=== PATIENT | male | born 1950 | race Caucasian/White ===

== ENCOUNTER 2018-06-05 17:45 | Inpatient (IN) | payer MEDICARE, OTHER ==
--- NOTE | 2018-06-05 18:18 | ER Document Report ---
ED General - General Chief Complaint: Shortness Of Breath Stated Complaint: SHORTNESS OF BREATH Time Seen by Provider: 06/05/18 18:08 Mode of Arrival: Medic Information source: Patient, DrLeonila Office, [facility] Records Notes: 68-year-old male with GERD presents with complaint of shortness of breath that started 1 month prior to arrival. Patient was seen by his primary care physician Dr. Simpson this morning and advised to come to the emergency department. Patient arrived via EMS. He was found to be in atrial fibrillation and was given 20 mg of Cardizem prior to arrival. Patient denies chest pain, palpitations, nausea, vomiting, diaphoresis. - HPI Onset: Other Quality of pain: No pain Severity: None Associated symptoms: Shortness of breath. denies: Chest pain, Nonproductive cough, Fever, Nausea, Vomiting, Weakness Exacerbated by: Denies Relieved by: Denies Similar symptoms previously: No Recently seen / treated by doctor: Yes - June 05, 2018 Dr. Simpson - Related Data Allergies/Adverse Reactions: No Known Allergies Allergy (Verified 06/05/18 21:06) Past Medical History - General Information source: Patient, Emergency Med Personnel - Social History Smoking Status: Never Smoker Frequency of alcohol use: None Drug Abuse: None Lives with: Spouse/Significant other Family History: Reviewed & Not Pertinent Patient has suicidal ideation: No Patient has homicidal ideation: No GI Medical History: Reports: Hx Gastroesophageal Reflux Disease Review of Systems - Review of Systems Notes: REVIEW OF SYSTEMS: CONSTITUTIONAL : Denies fever, chills, or sweats. Denies recent illness. Denies weight loss, recent hospitalizations. EENT: Denies visual changes, eye pain. Denies sore throat, oral lesions, difficulty swallowing. CARDIOVASCULAR: Denies chest pain. Denies palpitations. Denies lower extremity edema. RESPIRATORY: Denies cough. Denies wheezing. GASTROINTESTINAL: Denies abdominal pain or distention. Denies nausea, vomiting , or diarrhea. Denies blood in vomitus, stools, or per rectum. Denies black, tarry stools. Denies constipation. GENITOURINARY: Denies difficulty urinating, painful urination, frequency, blood in urine, testicular pain or penile discharge. MUSCULOSKELETAL: Denies back or neck pain or stiffness. Denies joint pain or swelling. SKIN: Denies rash, lesions or sores. HEMATOLOGIC : Denies easy bruising or bleeding. LYMPHATIC: Denies swollen glands. NEUROLOGICAL: Denies confusion or altered mental status. Denies loss of consciousness. Denies dizziness or lightheadedness. Denies headache. Denies weakness or paralysis. Denies problems difficulty with ambulation, slurred speech. Denies sensory loss, numbness, or tingling. Denies seizures. PSYCHIATRIC: Denies anxiety or stress. Denies depression, suicidal ideation, or Physical Exam - Vital signs Vitals: Temp Pulse BP Pulse Ox 98.2 F 67 135/74 H 100 06/05/18 17:56 06/05/18 17:56 06/05/18 17:56 06/05/18 17:56 Interpretation: Tachycardic. No: Hypoxic - Notes Notes: PHYSICAL EXAMINATION: GENERAL: Well-appearing, well-nourished and in no acute distress. HEAD: Atraumatic, normocephalic. EYES: Pupils equal round and reactive to light, extraocular movements intact, sclera anicteric, conjunctiva are normal. ENT: Nares patent, oropharynx clear without exudates. Moist mucous membranes. NECK: Normal range of motion, supple without lymphadenopathy LUNGS: Breath sounds clear to auscultation bilaterally and equal. No wheezes rales or rhonchi. HEART: Tachycardic, irregular rhythm. ABDOMEN: Soft, nontender, nondistended abdomen. No guarding, no rebound. No masses appreciated. Musculoskeletal: Normal range of motion, no pitting or edema. No cyanosis. NEUROLOGICAL: Cranial nerves grossly intact. Normal speech, normal gait. Normal sensory, motor exams PSYCH: Normal mood, normal affect. SKIN: Warm, Dry, normal turgor, no rashes or lesions noted. Course - Re-evaluation Re-evalutation: 06/05/18 22:05 Laboratory 06/05/18 06/05/18 06/05/18 18:43 18:43 20:28 WBC 6.2 RBC 4.81 Hgb 14.8 Hct 42.6 MCV 89 MCH 30.7 MCHC 34.7 RDW 12.9 Plt Count 208 Seg Neutrophils % 77.9 Lymphocytes % 12.7 L Monocytes % 7.4 Eosinophils % 1.5 Basophils % 0.5 Absolute Neutrophils 4.8 Absolute Lymphocytes 0.8 Absolute Monocytes 0.5 Absolute Eosinophils 0.1 Absolute Basophils 0.0 PT INR Sodium Potassium Chloride Carbon Dioxide Anion Gap BUN Creatinine Est GFR ( Amer) Est GFR (Non-Af Amer) Glucose Calcium Magnesium Total Bilirubin Direct Bilirubin Neonat Total Bilirubin Neonat Direct Bilirubin Neonat Indirect Bili AST ALT Alkaline Phosphatase Troponin I NT-Pro-B Natriuret Pep Total Protein Albumin Urine Color YELLOW Urine Appearance CLEAR Urine pH 5.0 Ur Specific [place] 1.026 Urine Protein NEGATIVE Urine Glucose (UA) NEGATIVE Urine Ketones TRACE H Urine Blood NEGATIVE Urine Nitrite NEGATIVE Urine Bilirubin NEGATIVE Urine Urobilinogen NEGATIVE Ur Leukocyte Esterase NEGATIVE Urine WBC (Auto) 3 Urine RBC (Auto) 1 U Hyaline Cast (Auto) 1 Squamous Epi Cells Auto <1 Urine Mucus (Auto) MOD Urine Ascorbic Acid NEGATIVE Urine Opiates Screen NEGATIVE Urine Methadone Screen NEGATIVE Ur Barbiturates Screen NEGATIVE Ur Phencyclidine Scrn NEGATIVE Ur Amphetamines Screen NEGATIVE U Benzodiazepines Scrn NEGATIVE Urine Cocaine Screen NEGATIVE U Marijuana (THC) Screen NEGATIVE 06/05/18 06/05/18 06/05/18 20:28 20:28 20:28 WBC RBC Hgb Hct MCV MCH MCHC RDW Plt Count Seg Neutrophils % Lymphocytes % Monocytes % Eosinophils % Basophils % Absolute Neutrophils Absolute Lymphocytes Absolute Monocytes Absolute Eosinophils Absolute Basophils PT Cancelled 13.3 INR Cancelled 0.97 Sodium 140.9 Potassium 4.5 Chloride 106 Carbon Dioxide 28 Anion Gap 7 BUN 21 H Creatinine 0.71 Est GFR ( Amer) > 60 Est GFR (Non-Af Amer) > 60 Glucose 107 Calcium 9.5 Magnesium 2.2 Total Bilirubin 1.1 Direct Bilirubin 0.4 Neonat Total Bilirubin Not Reportable Neonat Direct Bilirubin Not Reportable Neonat Indirect Bili Not Reportable AST 19 ALT 30 Alkaline Phosphatase 57 Troponin I NT-Pro-B Natriuret Pep Total Protein 6.7 Albumin 4.1 Urine Color Urine Appearance Urine pH Ur Specific [place] Urine Protein Urine Glucose (UA) Urine Ketones Urine Blood Urine Nitrite Urine Bilirubin Urine Urobilinogen Ur Leukocyte Esterase Urine WBC (Auto) Urine RBC (Auto) U Hyaline Cast (Auto) Squamous Epi Cells Auto Urine Mucus (Auto) Urine Ascorbic Acid Urine Opiates Screen Urine Methadone Screen Ur Barbiturates Screen Ur Phencyclidine Scrn Ur Amphetamines Screen U Benzodiazepines Scrn Urine Cocaine Screen U Marijuana (THC) Screen 06/05/18 20:28 WBC RBC Hgb Hct MCV MCH MCHC RDW Plt Count Seg Neutrophils % Lymphocytes % Monocytes % Eosinophils % Basophils % Absolute Neutrophils Absolute Lymphocytes Absolute Monocytes Absolute Eosinophils Absolute Basophils PT INR Sodium Potassium Chloride Carbon Dioxide Anion Gap BUN Creatinine Est GFR ( Amer) Est GFR (Non-Af Amer) Glucose Calcium Magnesium Total Bilirubin Direct Bilirubin Neonat Total Bilirubin Neonat Direct Bilirubin Neonat Indirect Bili AST ALT Alkaline Phosphatase Troponin I < 0.012 NT-Pro-B Natriuret Pep 688 Total Protein Albumin Urine Color Urine Appearance Urine pH Ur Specific [place] Urine Protein Urine Glucose (UA) Urine Ketones Urine Blood Urine Nitrite Urine Bilirubin Urine Urobilinogen Ur Leukocyte Esterase Urine WBC (Auto) Urine RBC (Auto) U Hyaline Cast (Auto) Squamous Epi Cells Auto Urine Mucus (Auto) Urine Ascorbic Acid Urine Opiates Screen Urine Methadone Screen Ur Barbiturates Screen Ur Phencyclidine Scrn Ur Amphetamines Screen U Benzodiazepines Scrn Urine Cocaine Screen U Marijuana (THC) Screen Chest X-Ray 06/05/18 18:18 IMPRESSION: NO ACUTE RADIOGRAPHIC FINDING IN THE CHEST. 06/05/18 23:41 68-year-old male presents with complaint of shortness of breath. Patient states shortness of breath has been ongoing for 1 month. He is seen by his primary care physician today and sent to the emergency department via EMS when found to be in atrial fibrillation with RVR. Patient did receive 25 mg of Cardizem prior to arrival. Upon arrival patient is still tachycardic with a heart rate in the 140-150s. Cardizem drip initiated. Heart rate presently 103 with a blood pressure 122/84. Patient denies prior similar symptoms. He does not appear toxic or dehydrated. He is in no acute distress. Chest x-ray shows no evidence of congestive heart failure. CBC is without leukocytosis or anemia. CMP shows no electrolyte abnormalities. Cardiac enzymes within normal limits. Patient will be admitted to the hospitalist for new onset atrial fibrillation. Patient accepted by Dr. Edwards. - Vital Signs Vital signs: Temp Pulse Resp BP Pulse Ox 98.3 F 67 18 120/78 96 06/05/18 23:28 06/05/18 17:56 06/05/18 23:01 06/05/18 23:01 06/05/18 23:01 - Laboratory Result Diagrams: 06/05/18 20:28 06/05/18 20:28 Laboratory results interpreted by me: 06/05/18 06/05/18 06/05/18 18:43 20:28 20:28 Lymphocytes % 12.7 L BUN 21 H Urine Ketones TRACE H - Diagnostic Test Radiology reviewed: Image reviewed, Reports reviewed Discharge - Discharge Clinical Impression: New onset atrial fibrillation, Atrial fibrillation with RVR, Shortness of breath Condition: Good Disposition: ADMITTED INPATIENT Admitting Provider: Hospitalist Unit Admitted: Telemetry
--- NOTE | 2018-06-05 18:43 | RADIOLOGY REPORT (SQ) ---
EXAM DESCRIPTION: CHEST 2 VIEWS COMPLETED DATE/TIME: 06/05/2018 6:31 pm REASON FOR STUDY: a-fib COMPARISON: None. EXAM PARAMETERS: NUMBER OF VIEWS: two views TECHNIQUE: Digital Frontal and Lateral radiographic views of the chest acquired. RADIATION DOSE: NA LIMITATIONS: none FINDINGS: LUNGS AND PLEURA: No opacities, masses or pneumothorax. No pleural effusion. MEDIASTINUM AND HILAR STRUCTURES: No masses or contour abnormalities. HEART AND VASCULAR STRUCTURES: Heart normal size. No evidence for failure. BONES: No acute findings. HARDWARE: None in the chest. OTHER: No other significant finding. IMPRESSION: NO ACUTE RADIOGRAPHIC FINDING IN THE CHEST. TECHNICAL DOCUMENTATION: JOB ID: [id number] [id number] 2010 [employer]- All Rights Reserved Reading location - IP/workstation name: Personal
[2018-06-05] MEDS: DILTIAZEM HCL/D5W 125 MG/125 ML RTUINJ IV PRN (18:51)
--- NOTE | 2018-06-05 20:04 | EKG REPORT ---
SEVERITY:- ABNORMAL ECG - ATRIAL FIBRILLATION, V-RATE 97-183 ABERRANT COMPLEX CONSIDER ANTEROSEPTAL INFARCT REPOLARIZATION ABNORMALITY, PROB RATE RELATED BORDERLINE PROLONGED QT INTERVAL : Confirmed by: Joseline Falk MD 05-Jun-2018 20:03:21
[2018-06-05 20:43] LABS: ABSOLUTE EOSINOPHILS # (AUTO) 0.1 10^3/uL (0.0-0.6); ABSOLUTE LYMPHOCYTES (AUTO) 0.8 10^3/uL (0.5-4.7); ABSOLUTE MONOCYTES (AUTO) 0.5 10^3/uL (0.1-1.4); ABSOLUTE NEUT (AUTO) 4.8 10^3/uL (1.7-8.2); BASOPHILS % (AUTO) 0.5 % (0-2); EOSINOPHILS % (AUTO) 1.5 % (0-6); HEMATOCRIT 42.6 % (37.9-51.0); HEMOGLOBIN 14.8 g/dL (13.5-17.0); LYMPHOCYTES % (AUTO) 12.7 % (13-45); MEAN CORPUSCULAR HEMOGLOBIN 30.7 pg (27.0-33.4); MEAN CORPUSCULAR HGB CONC 34.7 g/dL (32.0-36.0); MEAN CORPUSCULAR VOLUME 89 fl (80-97); MONOCYTES % (AUTO) 7.4 % (3-13); PLATELET COUNT 208 10^3/uL (150-450); RED BLOOD COUNT 4.81 10^6/uL (4.35-5.55); RED CELL DISTRIBUTION WIDTH 12.9 % (11.5-14.0); SEGMENTED NEUTROPHILS % (AUTO) 77.9 % (42-78); TOTAL CELLS COUNTED % (AUTO) 100 %; WHITE BLOOD COUNT 6.2 10^3/uL (4.0-10.5)
[2018-06-05 20:49] LABS: INTERNATIONAL RATION (INR) 0.97
[2018-06-05 20:58] LABS: PROTHROMBIN TIME 13.3 SEC (11.4-15.4)
[2018-06-05 20:59] LABS: ALANINE AMINOTRANSFERASE 30 U/L (21-72); ALBUMIN 4.1 g/dL (3.5-5.0); ALKALINE PHOSPHATASE 57 U/L (38-126); ANION GAP 7 (5-19); ASPARTATE AMINO TRANSFERASE 19 U/L (17-59); BILIRUBIN,DIRECT 0.4 mg/dL (0.0-0.4); BILIRUBIN,TOTAL 1.1 mg/dL (0.2-1.3); BLOOD UREA NITROGEN 21 mg/dL (7-20); CALCIUM 9.5 mg/dL (8.4-10.2); CARBON DIOXIDE 28 mmol/L (22-30); CHLORIDE 106 mmol/L (98-107); GLUCOSE 107 mg/dL (75-110); POTASSIUM 4.5 mmol/L (3.6-5.0); SODIUM 140.9 mmol/L (137-145); TOTAL PROTEIN 6.7 g/dL (6.3-8.2)
[2018-06-05 21:11] LABS: NT PRO BNP 688 pg/mL (5-900)
[2018-06-05 21:12] LABS: TROPONIN I < 0.012 ng/mL
[2018-06-05 21:25] LABS: APPEARANCE,URINE CLEAR; BILIRUBIN,URINE NEGATIVE (NEGATIVE); COLOR,URINE YELLOW; GLUCOSE, URINE NEGATIVE (NEGATIVE); KETONES,URINE TRACE mg/dL (NEGATIVE); LEUKOCYTE ESTERASE,URINE NEGATIVE (NEGATIVE); NITRITE,URINE NEGATIVE (NEGATIVE); PROTEIN,URINE NEGATIVE (NEGATIVE); URINE SPECIFIC GRAVITY 1.026; UROBILINOGEN,URINE NEGATIVE mg/dL (<2.0)
[2018-06-05 21:34] LABS: URINE AMPHETAMINES SCREEN NEGATIVE; URINE BARBITURATES SCREEN NEGATIVE; URINE BENZODIAZEPINES SCREEN NEGATIVE; URINE COCAINE SCREEN NEGATIVE; URINE MARIJUANA (THC) SCREEN NEGATIVE; URINE METHADONE SCREEN NEGATIVE; URINE PHENCYCLIDINE SCREEN NEGATIVE
[2018-06-05] MEDS ORDERED: TEMAZEPAM 7.5 MG CAPSULE PO PRN (22:56)
[2018-06-05] MEDS ORDERED: ACETAMINOPHEN 325 MG TABLET PO PRN (22:56)
[2018-06-05] MEDS ORDERED: MAG HYDROX/AL HYDROX/SIMETH SUSP 30 ML UDCUP PO PRN (22:56)
[2018-06-05] MEDS ORDERED: MAGNESIUM HYDROXIDE SUSP 30 ML UDCUP PO PRN (22:56)
[2018-06-05] MEDS ORDERED: PROMETHAZINE HCL 25 MG TABLET PO PRN (22:56)
[2018-06-05] MEDS ORDERED: PROMETHAZINE HCL INJ 25 MG/1 ML VIAL IV PRN (22:56)
[2018-06-05] MEDS ORDERED: DILTIAZEM HCL 30 MG TABLET PO ONE (23:15)
[2018-06-05] MEDS ORDERED: ENOXAPARIN SODIUM INJ 100 MG/1 ML DISP.SYRIN SUBCUT ONE (23:30)
[2018-06-06 00:07] LABS: INTERNATIONAL RATION (INR) 0.97; PROTHROMBIN TIME 13.4 SEC (11.4-15.4)
--- NOTE | 2018-06-06 00:38 | PDOC H&P ---
History of Present Illness Admission Date/PCP: 06/05/18 21:59 VIDA CHILD MD Patient complains of: Sent by PCP History of Present Illness: ALANNA YEN is a 68 year old male who went to his primary care provider today for his wellness exam and he was found with new onset atrial fibrillation. He belief that he had very mild shortness of breath twice in the last 2 weeks, besides that he denies any palpitations, chest tightness, dizziness, lightheadedness, cough, wheezing, abdominal symptomatology, denies any urinary or bowel movements problems. Patient does not have any medical condition until now. 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 Patient does not take any medications at home. EKG in the ED shows atrial fibrillation with a heart rate oscillating between 97 and 189. Chest x-ray negative. 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 Father at 44 years old with pneumonia Parental Family History Reviewed: Yes - As above Children Family History Reviewed: NA Sibling(s) Family History Reviewed.: NA Medication/Allergy Allergies/Adverse Reactions: No Known Allergies Allergy (Verified 06/05/18 21:06) Review of Systems Review of Systems: As outlined in the HPI, others negative Physical Exam Vital Signs: Temp Pulse Resp BP Pulse Ox 98.3 F 67 18 120/78 96 06/05/18 23:28 06/05/18 17:56 06/05/18 23:01 06/05/18 23:01 06/05/18 23:01 Additional comments: General appearance: Well-developed, well-nourished, alert and cooperative, and appears to be in no acute distress Head: Normocephalic Eyes: PEERL, EOMI, vision is grossly intact. Ears: External auditory canal and tympanic membranes clear, hearing grossly intact. Nose: No nasal discharge. Throat: Oral cavity and pharynx normal. No inflammation, swelling, exudate or lesions. Neck: Neck supple, nontender without lymphadenopathy, masses or thyromegaly. Cardiac: Normal S1 and S2. No S3, S4 or murmurs. Rhythm is irregular and tachycardic. There is no peripheral edema, cyanosis or pallor. Extremities are warm and well perfused. Capillary refill is less than 2 seconds. No carotid bruits. Lungs: Clear to auscultation and percussion without rales, rhonchi, wheezing or diminished breath sounds. Not using accessory muscles. Abdomen: Positive bowel sounds. Soft. Nondistended, nontender. No guarding or rebound. No masses. No hepatosplenomegaly Extremities: No significant deformity or joint abnormality. No edema. Peripheral pulses intact. No varicosities. Neurological: Cranial nerves II through XII grossly intact. Strength and sensation symmetric and intact throughout. Reflexes 2+ throughout. Skin: Skin normal color, texture and turgor with no lesions or eruptions, warm and dry. Psychiatric: The mental examination revealed the patient was oriented to person , place, and time. The patient was able to demonstrate good judgment on recent , without hallucinations, abnormal affect or abnormal behaviors. Results Laboratory Results: 06/05/18 06/05/18 06/05/18 18:43 18:43 20:28 WBC 6.2 RBC 4.81 Hgb 14.8 Hct 42.6 MCV 89 MCH 30.7 MCHC 34.7 RDW 12.9 Plt Count 208 Seg Neutrophils % 77.9 Lymphocytes % 12.7 L Monocytes % 7.4 Eosinophils % 1.5 Basophils % 0.5 Absolute Neutrophils 4.8 Absolute Lymphocytes 0.8 Absolute Monocytes 0.5 Absolute Eosinophils 0.1 Absolute Basophils 0.0 PT INR Sodium Potassium Chloride Carbon Dioxide Anion Gap BUN Creatinine Est GFR ( Amer) Est GFR (Non-Af Amer) Glucose Calcium Magnesium Total Bilirubin Direct Bilirubin AST ALT Alkaline Phosphatase Total Protein Albumin Urine Color YELLOW Urine Appearance CLEAR Urine pH 5.0 Ur Specific [place] 1.026 Urine Protein NEGATIVE Urine Glucose (UA) NEGATIVE Urine Ketones TRACE H Urine Blood NEGATIVE Urine Nitrite NEGATIVE Urine Bilirubin NEGATIVE Urine Urobilinogen NEGATIVE Ur Leukocyte Esterase NEGATIVE Urine WBC (Auto) 3 Urine RBC (Auto) 1 U Hyaline Cast (Auto) 1 Squamous Epi Cells Auto <1 Urine Ascorbic Acid NEGATIVE Urine Opiates Screen NEGATIVE Urine Methadone Screen NEGATIVE Ur Barbiturates Screen NEGATIVE Ur Phencyclidine Scrn NEGATIVE Ur Amphetamines Screen NEGATIVE U Benzodiazepines Scrn NEGATIVE Urine Cocaine Screen NEGATIVE U Marijuana (THC) Screen NEGATIVE 06/05/18 06/05/18 20:28 20:28 WBC RBC Hgb Hct MCV MCH MCHC RDW Plt Count Seg Neutrophils % Lymphocytes % Monocytes % Eosinophils % Basophils % Absolute Neutrophils Absolute Lymphocytes Absolute Monocytes Absolute Eosinophils Absolute Basophils PT 13.3 INR 0.97 Sodium 140.9 Potassium 4.5 Chloride 106 Carbon Dioxide 28 Anion Gap 7 BUN 21 H Creatinine 0.71 Est GFR ( Amer) > 60 Est GFR (Non-Af Amer) > 60 Glucose 107 Calcium 9.5 Magnesium 2.2 Total Bilirubin 1.1 Direct Bilirubin 0.4 AST 19 ALT 30 Alkaline Phosphatase 57 Total Protein 6.7 Albumin 4.1 Urine Color Urine Appearance Urine pH Ur Specific [place] Urine Protein Urine Glucose (UA) Urine Ketones Urine Blood Urine Nitrite Urine Bilirubin Urine Urobilinogen Ur Leukocyte Esterase Urine WBC (Auto) Urine RBC (Auto) U Hyaline Cast (Auto) Squamous Epi Cells Auto Urine Ascorbic Acid Urine Opiates Screen Urine Methadone Screen Ur Barbiturates Screen Ur Phencyclidine Scrn Ur Amphetamines Screen U Benzodiazepines Scrn Urine Cocaine Screen U Marijuana (THC) Screen Impressions: Chest X-Ray 06/05/18 18:18 IMPRESSION: NO ACUTE RADIOGRAPHIC FINDING IN THE CHEST. Assessment & Plan - Diagnosis (1) New onset atrial fibrillation Is this a current diagnosis for this admission?: Yes Plan: Patient comes with new onset rapid atrial fibrillation. Patient has no other cardiac conditions. Has been started on Cardizem infusion, I will go ahead and give her 30 mg of p.o. Cardizem. Echocardiogram has been ordered. Cardiology with Dr. Callejas consultation placed. I will give him 1 mg/kg of Lovenox 1, as per his chads vascular score patient might be fine with only aspirin. TSH and magnesium added to previous labs. Will complete cardiac enzymes 3. Lipid panel and hemoglobin A1c with morning labs. Urine drug screen and urinalysis negative. Chest x-ray negative. Hopefully, convert to sinus rhythm spontaneously. - Time Time Spent: 30 to 50 Minutes - Inpatient Certification Based on my medical assessment, after consideration of the patient's comorbidities, presenting symptoms, or acuity I expect that the services needed warrant INPATIENT care.: Yes I certify that my determination is in accordance with my understanding of Medicare's requirements for reasonable and necessary INPATIENT services [42 CFR 412.3e].: Yes Medical Necessity: Risk of Complication if Not Cared For in Hospital
[2018-06-06 03:00] LABS: HEMOGLOBIN 14.9 g/dL (13.5-17.0); MEAN CORPUSCULAR HEMOGLOBIN 30.8 pg (27.0-33.4); MEAN CORPUSCULAR HGB CONC 34.6 g/dL (32.0-36.0); MEAN CORPUSCULAR VOLUME 89 fl (80-97); PLATELET COUNT 213 10^3/uL (150-450); RED BLOOD COUNT 4.83 10^6/uL (4.35-5.55); RED CELL DISTRIBUTION WIDTH 12.7 % (11.5-14.0); WHITE BLOOD COUNT 5.3 10^3/uL (4.0-10.5)
[2018-06-06 03:36] LABS: ANION GAP 8 (5-19); BLOOD UREA NITROGEN 17 mg/dL (7-20); CALCIUM 9.4 mg/dL (8.4-10.2); CARBON DIOXIDE 27 mmol/L (22-30); CHLORIDE 106 mmol/L (98-107); CHOLESTEROL 168.81 mg/dL (0-200); GLUCOSE 111 mg/dL (75-110); POTASSIUM 4.5 mmol/L (3.6-5.0); SODIUM 140.7 mmol/L (137-145); TRIGLYCERIDES 58 mg/dL (<150)
[2018-06-06 03:46] LABS: DIRECT LDL 86 mg/dL (<100)
[2018-06-06 07:37] LABS: APPEARANCE,URINE CLEAR; BILIRUBIN,URINE NEGATIVE (NEGATIVE); COLOR,URINE YELLOW; GLUCOSE, URINE NEGATIVE (NEGATIVE); KETONES,URINE 20 mg/dL (NEGATIVE); LEUKOCYTE ESTERASE,URINE NEGATIVE (NEGATIVE); NITRITE,URINE NEGATIVE (NEGATIVE); PROTEIN,URINE NEGATIVE (NEGATIVE); URINE SPECIFIC GRAVITY 1.021
[2018-06-06] MEDS: DILTIAZEM HCL/D5W 125 MG/125 ML RTUINJ IV PRN (07:45)
[2018-06-06] MEDS: APIXABAN 5 MG TABLET PO SCH ×2 (10:38→17:01)
[2018-06-06] MEDS: DILTIAZEM HCL 60 MG TABLET PO SCH ×2 (10:38→12:56)
[2018-06-06] MEDS: ASPIRIN 81 MG TABLET, CHEWABLE PO SCH (11:29)
[2018-06-06 11:39] LABS: ANION GAP 5 (5-19); BLOOD UREA NITROGEN 18 mg/dL (7-20); CALCIUM 9.4 mg/dL (8.4-10.2); CARBON DIOXIDE 28 mmol/L (22-30); CHLORIDE 106 mmol/L (98-107); GLUCOSE 111 mg/dL (75-110); POTASSIUM 4.5 mmol/L (3.6-5.0); SODIUM 139.4 mmol/L (137-145)
--- NOTE | 2018-06-06 12:08 | PDOC PROGRESS REPORT ---
Subjective Progress Note for:: 06/06/18 Subjective:: ALVIN YEN is a 68 year old male who presented to his primary care provider today for his annual wellness exam and was found to have new onset atrial fibrillation. He states that he has been asymptomatic with the exception of occasional very brief episodes of mild dyspnea with exertion over the last 2 or 3 weeks. He has not experienced palpitations, chest pain/tightness, dizziness or lightheadedness. He further denies cough, wheezing, hemoptysis and abdominal pain. He denies any prior similar problems, in fact he has no known medical problems and takes no medications. He has not identified any aggravating or ameliorating factors for his atrial fibrillation. In the emergency room he was found to have atrial fibrillation with rapid ventricular response which was treated with IV diltiazem. He showed an excellent response with good rate control between the 70s and the low 100s. Chest x-ray and cardiac enzymes were negative for acute disease. EKG showed no evidence of ischemic disease but was consistent with atrial fibrillation and a rapid ventricular response. 06/06/18: Alvin states he feels just fine and specifically has no chest pain, dyspnea, cough, nausea, vomiting, dizziness, lightheadedness or palpitations. He has so far tolerated his conversion to oral diltiazem therapy well and as long as he remains well-controlled on his heart rate he will be able to be discharged tomorrow morning. Reason For Visit: New onset atrial fibrillation with rapid ventricular response Physical Exam Vital Signs: Temp Pulse Resp BP Pulse Ox 97.4 F 67 24 H 142/107 H 98 06/06/18 06:36 06/05/18 17:56 06/06/18 07:02 06/06/18 07:02 06/06/18 07:02 Intake & Output 06/05/18 06/06/18 06/07/18 06:59 06:59 06:59 Intake Total 70 61 Balance 70 61 General appearance: PRESENT: no acute distress, cooperative, well-developed, well-nourished Head exam: PRESENT: atraumatic, normocephalic Eye exam: PRESENT: conjunctiva pink, EOMI. ABSENT: conjunctival injection, nystagmus, periorbital swelling, scleral icterus Ear exam: PRESENT: normal external ear exam. ABSENT: bleeding, drainage Mouth exam: PRESENT: moist, neck supple, tongue midline Neck exam: PRESENT: full ROM. ABSENT: JVD, lymphadenopathy, meningismus, tenderness, thyromegaly, tracheal deviation Respiratory exam: PRESENT: clear to auscultation alesha, symmetrical, unlabored Cardiovascular exam: PRESENT: irregular rhythm. ABSENT: bradycardia, clicks, diastolic murmur, gallop, rubs, systolic murmur, tachycardia Pulses: PRESENT: normal radial pulses, normal dorsalis pedis pul GI/Abdominal exam: PRESENT: normal bowel sounds, soft Rectal exam: PRESENT: deferred Extremities exam: PRESENT: full ROM. ABSENT: joint swelling, pedal edema, tenderness Musculoskeletal exam: PRESENT: ambulatory, normal inspection. ABSENT: deformity , dislocation Neurological exam: PRESENT: alert, awake, oriented to person, oriented to place , oriented to time, oriented to situation, CN II-XII grossly intact. ABSENT: motor sensory deficit Psychiatric exam: PRESENT: appropriate affect, normal mood Skin exam: ABSENT: jaundice, rash, urticaria Results Laboratory Results: 06/06/18 02:40 06/06/18 06/06/18 06/06/18 02:40 02:40 02:40 WBC 5.3 RBC 4.83 Hgb 14.9 Hct 43.0 MCV 89 MCH 30.8 MCHC 34.6 RDW 12.7 Plt Count 213 Sodium 140.7 Potassium 4.5 Chloride 106 Carbon Dioxide 27 Anion Gap 8 BUN 17 Creatinine 0.64 Est GFR ( Amer) > 60 Est GFR (Non-Af Amer) > 60 Glucose 111 H Calcium 9.4 Magnesium 2.0 Triglycerides 58 Cholesterol 168.81 LDL Cholesterol Direct 86 VLDL Cholesterol 12.0 HDL Cholesterol 60 Urine Color Urine Appearance Urine pH Ur Specific [place] Urine Protein Urine Glucose (UA) Urine Ketones Urine Blood Urine Nitrite Ur Leukocyte Esterase Urine RBC (Auto) 06/06/18 06:43 WBC RBC Hgb Hct MCV MCH MCHC RDW Plt Count Sodium Potassium Chloride Carbon Dioxide Anion Gap BUN Creatinine Est GFR ( Amer) Est GFR (Non-Af Amer) Glucose Calcium Magnesium Triglycerides Cholesterol LDL Cholesterol Direct VLDL Cholesterol HDL Cholesterol Urine Color YELLOW Urine Appearance CLEAR Urine pH 6.0 Ur Specific [place] 1.021 Urine Protein NEGATIVE Urine Glucose (UA) NEGATIVE Urine Ketones 20 H Urine Blood NEGATIVE Urine Nitrite NEGATIVE Ur Leukocyte Esterase NEGATIVE Urine RBC (Auto) 1 06/06/18 06/06/18 06/06/18 02:40 02:40 08:22 Troponin I < 0.012 < 0.012 NT-Pro-B Natriuret Pep 466 Impressions: Chest X-Ray 06/05/18 18:18 IMPRESSION: NO ACUTE RADIOGRAPHIC FINDING IN THE CHEST. Assessment & Plan - Diagnosis (1) Atrial fibrillation with RVR Is this a current diagnosis for this admission?: Yes Plan: Initial treatment was with IV Cardizem and this is now being converted to an oral Cardizem preparation. If patient tolerates the oral Cardizem and his rate remains well controlled he will be discharged home tomorrow. - Time Time Spent with patient: 35 or more minutes Medications reviewed and adjusted accordingly: Yes Anticipated discharge: Home Within: within 24 hours
[2018-06-06 15:09] LABS: HEMATOCRIT 44.8 % (37.9-51.0); HEMOGLOBIN 15.6 g/dL (13.5-17.0); MEAN CORPUSCULAR HEMOGLOBIN 30.9 pg (27.0-33.4); MEAN CORPUSCULAR HGB CONC 34.8 g/dL (32.0-36.0); MEAN CORPUSCULAR VOLUME 89 fl (80-97); PLATELET COUNT 241 10^3/uL (150-450); RED BLOOD COUNT 5.05 10^6/uL (4.35-5.55); RED CELL DISTRIBUTION WIDTH 12.9 % (11.5-14.0); WHITE BLOOD COUNT 6.7 10^3/uL (4.0-10.5)
[2018-06-06] MEDS ORDERED: DILTIAZEM HCL 60 MG TABLET PO ONE ×2 (16:00→19:30)
[2018-06-06] MEDS ORDERED: DILTIAZEM HCL 60 MG TABLET ONE (18:54)
--- NOTE | 2018-06-06 19:27 | XCELERA REPORT ---
[address] [address] Transthoracic Echocardiogram Report Name: ALANNA YEN Age: 68 yrs Gender: Male : 1950 Patient Status: Inpatient Patient [address]: [address] Study Date: 06/06/2018 10:34 AM Procedure: A complete two-dimensional transthoracic echocardiogram was performed (2D, M-mode, spectral and color flow Doppler). The study was technically adequate with some images being suboptimal in quality. Reason For Study: new onset a fib Ordering Physician: BEE LOW Performed By: Pamela Moreno Interpretation Summary LV diastolic function could not be adequately assessed due to atrial fibrilation. The left ventricular ejection fraction is normal. There is mild concentric left ventricular hypertrophy. The left ventricle is grossly normal size. Wall motion cannot be accurately commented on, but no definite regional wall motion abnormalities noted. The right ventricle is mildly dilated. The right ventricular systolic function is normal. The right atrium is normal in size The left atrium is moderately dilated. There is a trace amount of mitral regurgitation There is no mitral valve stenosis. There is no aortic valve stenosis No aortic regurgitation is present. There is no tricuspid stenosis. No tricuspid regurgitation. The aortic root is not well visualized but is probably normal size. The inferior vena cava appeared normal and decreased < 50% with respiration (RAP 10-15 mmHg) There is no pericardial effusion. MMode/2D Measurements & Calculations RVDd: 3.4 cm LVIDd: 5.2 cm FS: 32.3 % Ao root diam: 3.3 cm IVSd: 1.1 cm LVIDs: 3.5 cm EDV(Teich): 131.1 ml Ao root area: 8.5 cm2 LVPWd: 1.1 cm ESV(Teich): 52.3 ml EF(Teich): 60.1 % Doppler Measurements & Calculations Ao V2 max: 100.5 cm/sec LV V1 max P.9 mmHg PA V2 max: 78.0 cm/sec Ao max P.0 mmHg LV V1 max: 98.9 cm/sec PA max P.4 mmHg Left Ventricle The left ventricle is grossly normal size. There is mild concentric left ventricular hypertrophy. The left ventricular ejection fraction is normal. LV diastolic function could not be adequately assessed due to atrial fibrilation. Wall motion cannot be accurately commented on, but no definite regional wall motion abnormalities noted. Right Ventricle The right ventricle is mildly dilated. There is normal right ventricular wall thickness. The right ventricular systolic function is normal. Atria The right atrium is normal in size. The left atrium is moderately dilated. Interarterial septum not well visualized and not well dopplered. Cannot comment on ASD/PFO presence. Mitral Valve The mitral valve leaflets are sclerotic, but show no functional abnormalities. There is no mitral valve stenosis. There is a trace amount of mitral regurgitation. Aortic Valve The aortic valve is grossly normal. There is no aortic valve stenosis. No aortic regurgitation is present. Tricuspid Valve The tricuspid valve is not well visualized, but is grossly normal. There is no tricuspid stenosis. No tricuspid regurgitation. Pulmonic Valve The pulmonic valve is not well visualized. Great Vessels The aortic root is not well visualized but is probably normal size. The inferior vena cava appeared normal and decreased < 50% with respiration (RAP 10-15 mmHg). Effusions There is no pericardial effusion. : BEE LOW > Janeen Callejas
[2018-06-06] MEDS ORDERED: DILTIAZEM HCL 240 MG CAPSULE.CR PO SCH (22:00)
[2018-06-06] MEDS ORDERED: DILTIAZEM HCL 180 MG CAPSULE.CR PO SCH (22:00)
--- NOTE | 2018-06-06 22:18 | PDOC CONSULTATION ---
Consultation Consult Date: 06/06/18 Attending physician:: BEE LOW Consult reason:: A Fib History of Present Illness Admission Date/PCP: 06/05/18 21:59 VIDA CHILD MD Patient complains of: Tiredness History of Present Illness: ALANNA YEN is a 68 year old male who went to his primary care provider today for his wellness exam and he was found with new onset atrial fibrillation. He belief that he had very mild shortness of breath twice in the last 2 weeks, besides that he denies any palpitations, chest tightness, dizziness, lightheadedness, cough, wheezing, abdominal symptomatology, denies any urinary or bowel movements problems. Patient does not have any medical condition until now. 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 Patient does not take any medications at home. EKG in the ED shows atrial fibrillation with a heart rate oscillating between 97 and 189. Chest x-ray negative. This history obtained by the hospitalist was reviewed with the patient and confirmed. It seems that patient has noted some shortness of breath for last 2 weeks. Patient also admits to history of snoring but denied any daytime fatigue or sleepiness. Past Medical History Medical History: None Pulmonary Medical History: Reports: None EENT Medical History: Reports: None Neurological Medical History: Reports: None Endocrine Medical History: Reports: None Renal/ Medical History: Reports: None Malignancy Medical History: Reports: None GI Medical History: Reports: Gastroesophageal Reflux Disease Musculoskeltal Medical History: Reports: Arthritis Psychiatric Medical History: Reports: None Traumatic Medical History: Reports: None Hematology: Reports: None Infectious Medical History: Reports: None Past Surgical History Past Surgical History: Reports: Orthopedic Surgery - L knee replacement Social History Information Source: Patient Lives with: Spouse/Significant other Smoking Status: Former Smoker Frequency of Alcohol Use: Occasional Hx Recreational Drug Use: No Hx Prescription Drug Abuse: No Family History Family History: Reviewed & Not Pertinent Parental Family History Reviewed: Yes Children Family History Reviewed: Yes Sibling(s) Family History Reviewed.: Yes - No family history of premature coronary artery disease or sudden cardiac in immediate family members Medication/Allergy Home Medications: Aspirin [Ecotrin] 81 mg PO DAILY 06/06/18 Esomeprazole Magnesium [Nexium] 20 mg PO DAILYP PRN 06/06/18 Apixaban [Eliquis 5 mg Tablet] 5 mg PO BID 30 Days #60 tablet 06/07/18 Diltiazem HCl [Cardizem Cd 240 mg Capsule.cr] 480 mg PO QHS 30 Days #60 capsule.cr 06/07/18 Allergies/Adverse Reactions: No Known Allergies Allergy (Verified 06/05/18 21:06) Review of Systems Constitutional: ABSENT: chills, fever(s), headache(s), weight gain, weight loss Eyes: PRESENT: as per HPI. ABSENT: visual disturbances Ears: ABSENT: hearing changes Nose, Mouth, and Throat: ABSENT: as per HPI, headache(s), mouth pain, sore throat, vertigo, other Cardiovascular: ABSENT: chest pain, dyspnea on exertion, edema, orthropnea, palpitations Respiratory: ABSENT: cough, hemoptysis Gastrointestinal: ABSENT: abdominal pain, constipation, diarrhea, hematemesis, hematochezia, nausea, vomiting Genitourinary: ABSENT: dysuria, hematuria Musculoskeletal: ABSENT: joint swelling Integumentary: ABSENT: rash, wounds Neurological: ABSENT: abnormal gait, abnormal speech, confusion, dizziness, focal weakness, syncope Psychiatric: ABSENT: anxiety, depression, homidical ideation, suicidal ideation Endocrine: ABSENT: cold intolerance, heat intolerance, polydipsia, polyuria Hematologic/Lymphatic: ABSENT: easy bleeding, easy bruising Physical Exam Vital Signs: Temp Pulse Resp BP Pulse Ox 98.1 F 84 18 123/95 H 98 06/06/18 19:35 06/06/18 19:35 06/06/18 19:35 06/06/18 19:35 06/06/18 19:35 Intake & Output 06/05/18 06/06/18 06/07/18 06:59 06:59 06:59 Intake Total 70 457 Balance 70 457 Weight 85.1 kg General appearance: PRESENT: no acute distress, well-developed, well-nourished Head exam: PRESENT: atraumatic, normocephalic Eye exam: PRESENT: conjunctiva pink, EOMI, PERRLA. ABSENT: scleral icterus Ear exam: PRESENT: normal external ear exam Mouth exam: PRESENT: moist, tongue midline Neck exam: ABSENT: carotid bruit, JVD, lymphadenopathy, thyromegaly Respiratory exam: PRESENT: clear to auscultation alesha. ABSENT: rales, rhonchi, wheezes Cardiovascular exam: PRESENT: RRR. ABSENT: diastolic murmur, rubs, systolic murmur Pulses: PRESENT: normal dorsalis pedis pul Vascular exam: PRESENT: normal capillary refill GI/Abdominal exam: PRESENT: normal bowel sounds, soft. ABSENT: distended, guarding, mass, organolmegaly, rebound, tenderness Rectal exam: PRESENT: deferred Extremities exam: PRESENT: full ROM. ABSENT: calf tenderness, clubbing, pedal edema Neurological exam: PRESENT: alert, awake, oriented to person, oriented to place , oriented to time, oriented to situation, CN II-XII grossly intact. ABSENT: motor sensory deficit Psychiatric exam: PRESENT: appropriate affect, normal mood. ABSENT: homicidal ideation, suicidal ideation Skin exam: PRESENT: dry, intact, warm. ABSENT: cyanosis, rash Results Laboratory Results: 06/06/18 14:44 06/06/18 08:22 06/06/18 06/06/18 06/06/18 02:40 02:40 02:40 WBC 5.3 RBC 4.83 Hgb 14.9 Hct 43.0 MCV 89 MCH 30.8 MCHC 34.6 RDW 12.7 Plt Count 213 Sodium 140.7 Potassium 4.5 Chloride 106 Carbon Dioxide 27 Anion Gap 8 BUN 17 Creatinine 0.64 Est GFR ( Amer) > 60 Est GFR (Non-Af Amer) > 60 Glucose 111 H Calcium 9.4 Magnesium 2.0 Triglycerides 58 Cholesterol 168.81 LDL Cholesterol Direct 86 VLDL Cholesterol 12.0 HDL Cholesterol 60 Urine Color Urine Appearance Urine pH Ur Specific Sharon Urine Protein Urine Glucose (UA) Urine Ketones Urine Blood Urine Nitrite Ur Leukocyte Esterase Urine RBC (Auto) 06/06/18 06/06/18 06/06/18 06:43 08:22 14:44 WBC 6.7 RBC 5.05 Hgb 15.6 Hct 44.8 MCV 89 MCH 30.9 MCHC 34.8 RDW 12.9 Plt Count 241 Sodium 139.4 Potassium 4.5 Chloride 106 Carbon Dioxide 28 Anion Gap 5 BUN 18 Creatinine 0.64 Est GFR ( Amer) > 60 Est GFR (Non-Af Amer) > 60 Glucose 111 H Calcium 9.4 Magnesium 2.1 Triglycerides Cholesterol LDL Cholesterol Direct VLDL Cholesterol HDL Cholesterol Urine Color YELLOW Urine Appearance CLEAR Urine pH 6.0 Ur Specific Sharon 1.021 Urine Protein NEGATIVE Urine Glucose (UA) NEGATIVE Urine Ketones 20 H Urine Blood NEGATIVE Urine Nitrite NEGATIVE Ur Leukocyte Esterase NEGATIVE Urine RBC (Auto) 1 06/06/18 06/06/18 06/06/18 02:40 02:40 08:22 Troponin I < 0.012 < 0.012 NT-Pro-B Natriuret Pep 466 06/06/18 14:44 Troponin I < 0.012 NT-Pro-B Natriuret Pep EKG Comments: A Fib RVR Impressions: Chest X-Ray 06/05/18 18:18 IMPRESSION: NO ACUTE RADIOGRAPHIC FINDING IN THE CHEST. Assessment & Plan - Diagnosis (1) Atrial fibrillation with RVR Is this a current diagnosis for this admission?: Yes (2) Shortness of breath Is this a current diagnosis for this admission?: Yes (3) Habitual snoring Is this a current diagnosis for this admission?: Yes (4) Overweight Is this a current diagnosis for this admission?: Yes - Notes Notes: 2 DEchocardiogram Chronic anticoagulation and rate control Chemical and or electrical cardioversion after 3-4 weeks of adequate anticoagulation. Atrial fibrillation with rapid ventricular response: Exact duration of atrial fibrillation not clear but could have been about 2 weeks based on history since patient has been feeling some shortness of breath for last 2 weeks. At this point recommend anticoagulation and rate control. Decision regarding cardioversion/ablation can be made as an outpatient. This has been explained. Patient is agreeable with this approach. Dyspnea: Possibly related to atrial fibrillation. However patient to have a echocardiogram to to rule out any structural heart disease, valvular abnormalities, LV systolic and diastolic dysfunction etc. Habitual snoring: Patient confirms this. Patient will benefit from a sleep study. This was recommended to the patient. Overweight: Discussed association of sleep apnea and atrial fibrillation with obesity and being overweight. Patient encouraged in gradual weight loss. - Time Time Spent: 30 to 50 Minutes - CODE STATUS was discussed, patient remains full code. Surrogate decision-maker patient's . Multiple medical problems were addressed. More than 50% of the time spent coordinating care, discussing management plans with involved caregivers. Management plans discussed with involved personnels. Medical decision making was of moderate to high complexity , patient's has multiple comorbidities. Medications reviewed and adjusted accordingly: Yes
[2018-06-07] MEDS ORDERED: DILTIAZEM HCL 120 MG CAP.SR.24H PO ONE (08:48)
[2018-06-07] MEDS: ASPIRIN 81 MG TABLET, CHEWABLE PO SCH (09:18)
[2018-06-07] MEDS: APIXABAN 5 MG TABLET PO SCH (09:18)
--- NOTE | 2018-06-07 10:37 | PDOC DISCHARGE SUMMARY ---
General - Admit/Disc Date/PCP Admission Date/Primary Care Provider: 06/05/18 21:59 VIDA CHILD MD Discharge Date: 06/07/18 - Discharge Diagnosis (1) Atrial fibrillation with RVR Is this a current diagnosis for this admission?: Yes Summary: Patient's atrial fibrillation with rapid ventricular response was identified in the emergency room and he was started on a Cardizem drip after a Cardizem bolus. His rate was well controlled on the Cardizem drip and he was thus converted to oral Cardizem and continued to have good rate control after dosage was adjusted. He denies any symptoms associated with this medication. (2) New onset atrial fibrillation Is this a current diagnosis for this admission?: Yes Summary: He was started on Eliquis for stroke prevention in atrial fibrillation. He has tolerated Eliquis quite well. - Additional Information Discharge Diet: Cardiac Discharge Activity: Activity As Tolerated Prescriptions: Apixaban [Eliquis 5 mg Tablet] 5 mg PO BID 30 Days #60 tablet Diltiazem HCl [Cardizem Cd 240 mg Capsule.cr] 480 mg PO QHS 30 Days #60 capsule.cr Home Medications: Aspirin [Ecotrin] 81 mg PO DAILY 06/06/18 Esomeprazole Magnesium [Nexium] 20 mg PO DAILYP PRN 06/06/18 Apixaban [Eliquis 5 mg Tablet] 5 mg PO BID 30 Days #60 tablet 06/07/18 Diltiazem HCl [Cardizem Cd 240 mg Capsule.cr] 480 mg PO QHS 30 Days #60 capsule.cr 06/07/18 History of Present Illness Patient complains of: Asymptomatic tachycardia History of Present Illness: ALVIN YEN is a 68 year old male who presented to his primary care provider for his annual wellness exam and was found to have new onset atrial fibrillation with RVR. He states that he has been asymptomatic with the exception of occasional very brief episodes of mild dyspnea with exertion over the last 2 or 3 weeks. He has not experienced palpitations, chest pain/ tightness, dizziness or lightheadedness. He further denies cough, wheezing, hemoptysis and abdominal pain. He denies any prior similar problems, in fact he has no known medical problems and takes no medications. He has not identified any aggravating or ameliorating factors for his atrial fibrillation. Hospital Course Hospital Course: In the emergency room he was found to have atrial fibrillation with rapid ventricular response which was treated with IV diltiazem. He showed an excellent response with good rate control between the 70s and the low 100s. Chest x-ray and cardiac enzymes were negative for acute disease. EKG showed no evidence of ischemic disease but was consistent with atrial fibrillation and a rapid ventricular response. 06/06/18: Alvin states he feels just fine and specifically has no chest pain, dyspnea, cough, nausea, vomiting, dizziness, lightheadedness or palpitations. He has so far tolerated his conversion to oral diltiazem therapy well and as long as he remains well-controlled on his heart rate he will be able to be discharged tomorrow morning. 06/07/18: This morning Alvin states that he feels quite well and he is receptive to being discharged home. He has been instructed that he can enjoy normal activities of daily life and he does not have to take any particular precautions or avoid any particular activities. He will be following up with his primary care provider next week. His rate is remained well controlled overnight and his blood pressure has also been well controlled. Dosage adjustments were made throughout the day yesterday and early this morning. He appears to be quite stable on a total daily dose of 480 mg of diltiazem extended release 24-hour formulation. He denies dizziness, lightheadedness, palpitations, weakness, nausea, chest pain and syncope. He is going to be discharged to home this morning in improved and stable condition. Physical Exam Vital Signs: Temp Pulse Resp BP Pulse Ox 98.2 F 114 H 18 135/75 H 99 06/07/18 07:13 06/07/18 07:13 06/07/18 07:13 06/07/18 07:13 06/07/18 07:13 Intake & Output 06/06/18 06/07/18 06/08/18 06:59 06:59 06:59 Intake Total 70 1507 Balance 70 1507 Weight 83.8 kg General appearance: PRESENT: no acute distress, cooperative Head exam: PRESENT: atraumatic, normocephalic Eye exam: PRESENT: conjunctiva pink, EOMI. ABSENT: conjunctival injection, nystagmus, periorbital swelling, scleral icterus Ear exam: PRESENT: normal external ear exam. ABSENT: bleeding, drainage Mouth exam: PRESENT: moist, tongue midline Neck exam: ABSENT: thyromegaly, tracheal deviation Respiratory exam: PRESENT: clear to auscultation alesha, symmetrical, unlabored Cardiovascular exam: PRESENT: irregular rhythm. ABSENT: bradycardia, clicks, gallop Vascular exam: PRESENT: normal capillary refill. ABSENT: pallor GI/Abdominal exam: PRESENT: normal bowel sounds, soft Rectal exam: PRESENT: deferred Extremities exam: ABSENT: joint swelling, pedal edema Musculoskeletal exam: PRESENT: ambulatory, full ROM, normal inspection. ABSENT : deformity, dislocation Neurological exam: PRESENT: alert, oriented to person, oriented to place, oriented to time, oriented to situation, CN II-XII grossly intact. ABSENT: motor sensory deficit Psychiatric exam: PRESENT: appropriate affect, normal mood Skin exam: ABSENT: jaundice, rash, urticaria Results Laboratory Results: 06/06/18 14:44 06/06/18 08:22 06/06/18 06/06/18 08:22 14:44 WBC 6.7 RBC 5.05 Hgb 15.6 Hct 44.8 MCV 89 MCH 30.9 MCHC 34.8 RDW 12.9 Plt Count 241 Sodium 139.4 Potassium 4.5 Chloride 106 Carbon Dioxide 28 Anion Gap 5 BUN 18 Creatinine 0.64 Est GFR ( Amer) > 60 Est GFR (Non-Af Amer) > 60 Glucose 111 H Calcium 9.4 Magnesium 2.1 06/06/18 06/06/18 06/06/18 02:40 02:40 08:22 Troponin I < 0.012 < 0.012 NT-Pro-B Natriuret Pep 466 06/06/18 14:44 Troponin I < 0.012 NT-Pro-B Natriuret Pep Impressions: Chest X-Ray 06/05/18 18:18 IMPRESSION: NO ACUTE RADIOGRAPHIC FINDING IN THE CHEST. Qualifiers - * PATIENT BEING DISCHARGED WITH ANY OF THE FOLLOWING DIAGNOSIS: No Plan Discharge Plan: Discharge to home in improved and stable condition Time Spent: Greater than 30 Minutes
[2018-06-07 10:43] LABS: HEMATOCRIT 44.8 % (37.9-51.0); HEMOGLOBIN 15.7 g/dL (13.5-17.0); MEAN CORPUSCULAR HEMOGLOBIN 30.9 pg (27.0-33.4); MEAN CORPUSCULAR HGB CONC 34.9 g/dL (32.0-36.0); MEAN CORPUSCULAR VOLUME 89 fl (80-97); PLATELET COUNT 238 10^3/uL (150-450); RED BLOOD COUNT 5.06 10^6/uL (4.35-5.55); RED CELL DISTRIBUTION WIDTH 12.9 % (11.5-14.0); WHITE BLOOD COUNT 4.9 10^3/uL (4.0-10.5)
[2018-06-07 11:24] LABS: ANION GAP 11 (5-19); BLOOD UREA NITROGEN 13 mg/dL (7-20); CALCIUM 9.3 mg/dL (8.4-10.2); CARBON DIOXIDE 25 mmol/L (22-30); CHLORIDE 105 mmol/L (98-107); GLUCOSE 171 mg/dL (75-110); POTASSIUM 4.7 mmol/L (3.6-5.0); SODIUM 140.5 mmol/L (137-145)
[2018-06-07 11:50] VITALS: BP 134/78
--- NOTE | 2018-06-07 12:01 | PDOC PROGRESS REPORT ---
Subjective Progress Note for:: 06/07/18 Subjective:: Patient seems to be doing better. Pt is denying any chest arm or neck discomfort. Patient denying any PND, orthopnea. Patient denied any sustained palpitations, dizziness, syncope, near syncope. Patient denying any fever chills. Patient denying any other significant discomfort. Patient is maintaining atrial fibrillation, rate is now well controlled Review of systems: Rest review of systems negative. Medications: Medications have been reviewed. Reason For Visit: NEW ONSET A FIB Physical Exam Vital Signs: Temp Pulse Resp BP Pulse Ox 98.2 F 114 H 18 134/78 H 99 06/07/18 11:47 06/07/18 11:47 06/07/18 11:47 06/07/18 11:47 06/07/18 11:47 Intake & Output 06/06/18 06/07/18 06/08/18 06:59 06:59 06:59 Intake Total 70 1507 Balance 70 1507 Weight 83.8 kg Exam: GENERAL: well-nourished and in no acute distress. Alert and oriented x3 HEAD: Atraumatic, normocephalic. EYES: Pupils equal round and reactive to light, extraocular movements intact, sclera anicteric, conjunctiva are normal. ENT: TMs normal, nares patent, oropharynx clear without exudates. Moist mucous membranes. No oral ulcerations or bleeding gums noted NECK: supple without lymphadenopathy. Trachea is central. No cervical or axillary lymphadenopathy noted. Carotids are 2+, JVD WNL LUNGS: Respiration seems nonlabored, no significant accessory muscle action noted. Breath sounds clear to auscultation bilaterally and equal noted. No wheezes rales or rhonchi noted. No significant dullness noted on percussion. CHEST: Palpation of the chest wall shows no significant chest wall tenderness. HEART: [place] [employer], No PSH, 1/6 JENNIFER aortic area, 1/6 mensah systolic murmur mitral area, no rubs, no gallops. ABDOMEN: Soft, no significant tenderness appreciated, normoactive bowel sounds. No guarding, no rebound. No rigidity noted . No masses appreciated. EXTREMITIES: Pedal pulses are 1-2+, no calf tenderness noted. No clubbing or cyanosis. negative pedal edema noted NEUROLOGICAL: Focused neurological exam showed no significant neurologic deficit. Normal speech, no focal weakness appreciated. PSYCH: Normal mood, normal affect. Judgment and insight within normal limits. SKIN: No significant ecchymosis, skin is noted to be warm. MUSCULOSKELETAL EXAM: No significant acute joint swelling noted. Results Laboratory Results: 06/07/18 09:49 06/07/18 09:49 06/06/1818 06/07/18 14:44 09:49 09:49 WBC 6.7 4.9 RBC 5.05 5.06 Hgb 15.6 15.7 Hct 44.8 44.8 MCV 89 89 MCH 30.9 30.9 MCHC 34.8 34.9 RDW 12.9 12.9 Plt Count 241 238 Sodium 140.5 Potassium 4.7 Chloride 105 Carbon Dioxide 25 Anion Gap 11 BUN 13 Creatinine 0.63 Est GFR ( Amer) > 60 Est GFR (Non-Af Amer) > 60 Glucose 171 H Calcium 9.3 Magnesium 2.0 06/06/18 06/06/18 06/06/18 02:40 02:40 08:22 Troponin I < 0.012 < 0.012 NT-Pro-B Natriuret Pep 466 06/06/18 14:44 Troponin I < 0.012 NT-Pro-B Natriuret Pep Impressions: Chest X-Ray 06/05/18 18:18 IMPRESSION: NO ACUTE RADIOGRAPHIC FINDING IN THE CHEST. Assessment & Plan - Diagnosis (1) Atrial fibrillation with RVR Is this a current diagnosis for this admission?: Yes (2) Shortness of breath Is this a current diagnosis for this admission?: Yes (3) Habitual snoring Is this a current diagnosis for this admission?: Yes (4) Overweight Is this a current diagnosis for this admission?: Yes - Notes Notes: Atrial fibrillation with rapid ventricular response: Exact duration of atrial fibrillation not clear but could have been about 2 weeks based on history since patient has been feeling some shortness of breath for last 2 weeks. At this point recommend anticoagulation and rate control. Decision regarding cardioversion/ablation can be made as an outpatient. This has been explained. Patient is agreeable with this approach. Dyspnea: Claims this has improved. Could have been related to atrial fibrillation. 2D echo does show well-preserved LVEF. No significant valvular abnormalities noted. Habitual snoring: Patient confirms this. Patient will benefit from a sleep study. This was recommended to the patient. Overweight: Discussed association of sleep apnea and atrial fibrillation with obesity and being overweight. Patient encouraged in gradual weight loss. - Time Time with patient: Greater than 35 minutes - 2D echo results discussed. Patient questions answered about management of atrial fibrillation. CODE STATUS was discussed, patient remains full code. Surrogate decision-maker unchanged. Multiple medical problems were addressed. More than 50% of the time spent coordinating care, discussing management plans with involved caregivers. Management plans discussed with involved personnels. Medical decision making was of moderate to high complexity, patient's has multiple comorbidities. Medications reviewed and adjusted accordingly: Yes
[2018-06-07] MEDS ORDERED: DILTIAZEM HCL 240 MG CAPSULE.CR PO SCH (22:00)
== END 2018-06-07 12:08 | disposition home or self-care (01) | DRG 310 ==
LOC: ER 17:45 → EH 21:59 → 3W 06-06 14:20
PROVIDERS: ADMIT Internal Medicine; ATTEND Internal Medicine
DX: I48.91 Unspecified atrial fibrillation (principal); K21.9 Gastro-esophageal reflux disease without esophagitis; M19.90 Unspecified osteoarthritis, unspecified site; E66.9 Obesity, unspecified; R06.83 Snoring; Z96.652 Presence of left artificial knee joint; Z87.891 Personal history of nicotine dependence; Z79.899 Other long term (current) drug therapy; Z82.3 Family history of stroke
CPT/HCPCS: 36415; 71046; 80048; 80053; 80061; 80307; 81001; 83036; 83735; 83880; 84443; 84484; 85025; 85027; 85610; 85730; 93005; 93010; 93306; 99285; J1650; J3490